=== PATIENT | female | born 1990 | race Caucasian/White ===

== ENCOUNTER 2016-08-29 23:55 | Emergency (ER) | payer BC ==
--- NOTE | ~2016-08-29 | ER ---
PATIENT'S NAME: GISEL ELKINS [facility] AGE: 26 Y [address] ROOM: [place] [id number] LOCATION: [facility] ADMIT DATE: 08/29/2016 ER/Outpatient Report DISCHARGE DATE: 08/30/2016 FAMILY PHYSICIAN: Tete Tamez MD ATTENDING PHYSICIAN: Yue Taylor HISTORY OF PRESENT ILLNESS: This is a 26-year-old female, who presents today with multiple complaints. They include feeling very anxious, chest pain, palpitations, feeling short of breath, feeling like a weight in the back of her neck, feeling perioral paresthesias, and numbness and tingling in her fingers. She says this started a little while ago. The patient's sister was recently involved in a car accident, and she has just come home today from the hospital. The patient says that she was trying to go to bed and was thinking about it and then all of the symptoms started. She says that she has had something like this in the past, few years ago. She had some Ativan as well, so she took some of that, and she is feeling better at this time. She just reports some mild palpitations. No chest pain though and this pressure at the back of her neck. No other complaints. PAST MEDICAL HISTORY: Includes anxiety. PAST SURGICAL HISTORY: None. LMP was 08/07/2016. SOCIAL HISTORY: She does not smoke, drink, or use any drugs. MEDICATIONS: Ativan only. ALLERGIES: PLEASE SEE MED LIST. REVIEW OF SYSTEMS: Reviewed by me and negative with the exception of those discussed in the HPI. PHYSICAL EXAMINATION: VITAL SIGNS: She is 5 feet 4 inches. She weighs 62.8 kg. Heart rate is 109 at this time, respiratory rate 20, temp is 97.7, saturating at 99% on room air. GENERAL: The patient is well appearing. She does not appear anxious at this PATIENT'S NAME: GISEL ELKINS [facility] AGE: 26 Y [address] ROOM: [place] [id number] LOCATION: [facility] ADMIT DATE: 08/29/2016 ER/Outpatient Report DISCHARGE DATE: 08/30/2016 FAMILY PHYSICIAN: Tete Tamez MD ATTENDING PHYSICIAN: Taylor,Yue A time. Very pleasant. Speaking in full sentences. HEENT: Pupils are equal and reactive to light. She does not have any pinpoint pupils. She is A and O x4. Throat is clear. She has no cervical lymphadenopathy. HEART: Regular rate and rhythm at this time. It is actually like 92 beats per minute. LUNGS: Her lungs sounds sound clear. She has no labored breathing, tachypnea, or accessory muscle use. No decreased breath sounds. No wheezing, rales, or rhonchi. No tachypnea. ABDOMEN: Soft, nontender, and nondistended. SKIN: Warm and dry without evidence of trauma, rashes, or ecchymoses. PSYCHIATRIC: She has appropriate affect. She is cooperative. She is neat and clean. She maintains good eye contact and has normal speech. Rational thought. No flight of ideas. GCS 15. EMERGENCY ROOM COURSE: Discussed with the patient. She has taken Ativan. She already is feeling a lot better. Her friend who is with her says that she looks a lot better than she did before. Given all these constellation of symptoms, I do think this is probably related to anxiety as well. She has stable vital signs, and she reports she is feeling better with Ativan, so we will send her home. She asked if she could take some more Ativan at home. I did say it was okay; however, should not take with any co-ingestants like alcohol, narcotics, Benadryl, etc., and she will follow up with her doctor appropriately. IMPRESSION: Anxiety reaction. MD PRIYANKA RUIZ/carlos /[id number] d: 08/30/169 t: 08/31/16 1816, OUTPATIENT REPORT
== END 2016-08-30 00:31 | disposition disaster alternative care site (69) ==
LOC: GMED 23:55
DX: F41.1 Generalized anxiety disorder (principal)